=== PATIENT | male | born 1990 | race Caucasian/White ===

== ENCOUNTER 2018-08-09 22:43 | Emergency (ER) | payer SELFPAY ==
[2018-08-09 23:09] VITALS: BP 134/76; PULSE 90; RESP 20; TEMP 98.2; O2SAT 99
--- NOTE | 2018-08-09 23:32 | C.PDOC ---
History Of Present Illness CHART DONE ON PAPER DURING DOWNTIME Time Seen by Provider: 08/09/18 23:31 Chief Complaint (Nursing): Male Genitourinary History Per: Patient Additional History Per: Patient Past Medical History Reviewed: Historical Data, Nursing Documentation, Vital Signs Vital Signs: Last Vital Signs Temp 98.2 F 08/09/18 23:05 Pulse 90 08/09/18 23:05 Resp 20 08/09/18 23:05 BP 134/76 08/09/18 23:05 Pulse Ox 99 08/09/18 23:05 Primary Care Provider: FAMILY PROVIDER,NO - Medical History PMH: No Chronic Diseases Surgical History: No Surg Hx Family History: States: Unknown Family Hx - Social History Hx Alcohol Use: Yes Hx Substance Use: No - Immunization History Hx Tetanus Toxoid Vaccination: No Hx Influenza Vaccination: No Hx Pneumococcal Vaccination: No Review Of Systems Review Of Systems: ROS cannot be obtained secondary to pt's inabilty to answer questions. (CHART DONE ON PAPER DURING DOWNTIME) Physical Exam - Physical Exam Additional Physical Exam Comments: CHART DONE ON PAPER DURING DOWNTIME ED Course And Treatment - Laboratory Results Result Diagrams: 08/10/18 00:45 08/10/18 00:45 O2 Sat by Pulse Oximetry: 99 Pulse Ox Interpretation: Normal Progress Note: CHART DONE ON PAPER DURING DOWNTIME Medical Decision Making Medical Decision Making: CHART DONE ON PAPER DURING DOWNTIME Disposition Counseled Patient/Family Regarding: Studies Performed, Diagnosis - Disposition Disposition: HOME/ ROUTINE Disposition Time: 23:32 Condition: GOOD Forms: [employer] (Bhutanese)
[2018-08-10] MEDS ORDERED: Sodium Chloride 0.9% 1,000 ML ONE (00:07)
[2018-08-10 07:23] LABS: BASO % 0.4 % (0.0-2.0); EOS # 0.3 K/uL (0.0-0.7); EOS % 5.1 % (0.0-4.0); HEMOGLOBIN 14.7 g/dL (12.0-18.0); LYMPH # 2.4 K/uL (1.0-4.3); LYMPH % 40.5 % (20.0-40.0); MEAN CELL VOLUME 91.3 fL (80.0-94.0); MEAN CORPUSCULAR HEMOGLOBIN 31.4 pg (27.0-31.0); MEAN CORPUSCULAR HGB CONC 34.4 g/dL (33.0-37.0); MEAN PLATELET VOLUME 10.2 fL (7.2-11.7); MONO # 0.4 K/uL (0.0-0.8); MONO % 6.9 % (0.0-10.0); NEUT # 2.8 K/uL (1.8-7.0); NEUT % 47.1 % (50.0-75.0); NRBC % 0.4 % (0.0-2.0); RBC 4.7 Mil/uL (4.40-5.90); RED CELL DISTRIBUTION WIDTH 12.7 % (11.5-14.5); WHITE BLOOD COUNT 5.9 K/uL (4.8-10.8)
[2018-08-10 10:56] LABS: BLOOD UREA NITROGEN 12 mg/dL (9-20); GFR NON-AFRICAN AMERICAN > 60
[2018-08-10 10:57] LABS: ALB/GLOB RATIO 1.7 (1.0-2.1); ALBUMIN 4.5 g/dL (3.5-5.0); ALT/SGPT 33 U/L (21-72); AST/SGOT 43 U/L (17-59); CALCIUM 9.6 mg/dl (8.6-10.4)
[2018-08-10 11:06] LABS: LIPASE 109 U/L (23-300)
[2018-08-10 12:12] LABS: URINE BILIRUBIN NEGATIVE (NEGATIVE); URINE CLARITY Clear (Clear); URINE COLOR STRAW (YELLOW); URINE GLUCOSE (UA) Normal (Normal)
[2018-08-10 12:13] LABS: URINE BLOOD NEGATIVE (NEGATIVE); URINE LEUKOCYTE ESTERASE NEGATIVE Leu/uL (Negative); URINE PROTEIN NEGATIVE (NEGATIVE); URINE UROBILINOGEN Normal mg/dL (0.2-1.0)
== END 2018-08-10 03:30 | disposition home or self-care (01) ==
LOC: C.ER 22:43
DX: N23 Unspecified renal colic (principal)
CPT/HCPCS: 74176; 80053; 81001; 83690; 85025; 96361; 96374; 99281; J1885; J7030